=== PATIENT | male | born 1965 | race Caucasian/White ===

== ENCOUNTER 2018-09-03 08:01 | Day surgery (SDC) | payer BC ==
[~2018-09-03 08:01] MED LIST: ZESTRIL10 M1 PO; ZOCOR20 M1 PO
[2018-09-03 09:39] VITALS: BP 112/64
== END 2018-09-03 10:10 | disposition home or self-care (01) | DRG 951 ==
LOC: ENDO 08:01
PROVIDERS: ATTEND Surgery
PROC: 0DJD8ZZ Inspection of Lower Intestinal Tract, Via Natural or Artificial Opening Endoscopic (ICD-10-PCS; principal; 2018-09-03)
DX: Z12.11 Encounter for screening for malignant neoplasm of colon (principal); K57.30 Diverticulosis of large intestine without perforation or abscess without bleeding; K64.4 Residual hemorrhoidal skin tags; I10 Essential (primary) hypertension